=== PATIENT | female | born 1995 | race Caucasian/White ===

== ENCOUNTER 2020-07-26 09:01 | Emergency (ER) | payer SELFPAY ==
[2020-07-26] MEDS ORDERED: AMOXicillin 250 MG CAP ONE (09:36)
== END 2020-07-26 09:38 | disposition home or self-care (01) ==
LOC: BURERS 09:01
DX: K02.9 Dental caries, unspecified (principal); F17.210 Nicotine dependence, cigarettes, uncomplicated
CPT/HCPCS: 99282

== ENCOUNTER 2020-08-16 08:44 | Emergency (ER) | payer OTHER, SELFPAY ==
[2020-08-17 11:55] LABS: SARS-CoV-2 MS2 Positive; SARS-CoV-2 N Gene Negative; SARS-CoV-2 S Gene Negative; SARS-CoV-2 by NAA Not Detected (NotDetected); SARS-CoV-2 orf1ab Negative
== END 2020-08-16 09:25 | disposition home or self-care (01) ==
LOC: BURERS 08:44
DX: J06.9 Acute upper respiratory infection, unspecified (principal); F17.210 Nicotine dependence, cigarettes, uncomplicated
CPT/HCPCS: 87635; 99281; U0003

== ENCOUNTER 2020-11-18 16:04 | Emergency (ER) | payer OTHER, SELFPAY ==
[2020-11-19 02:28] LABS: SARS-CoV-2 MS2 Positive; SARS-CoV-2 N Gene Negative; SARS-CoV-2 S Gene Negative; SARS-CoV-2 by NAA Not Detected (NotDetected); SARS-CoV-2 orf1ab Negative
== END 2020-11-18 16:42 | disposition home or self-care (01) ==
LOC: BURERS 16:04
DX: J02.9 Acute pharyngitis, unspecified (principal); Z20.822 Contact with and (suspected) exposure to COVID-19
CPT/HCPCS: 87635; 99283; U0003

== ENCOUNTER 2021-07-02 12:15 | Emergency (ER) | payer SELFPAY | END 2021-07-02 12:55 | disposition home or self-care (01) | LOC: BURERS 12:15 | DX: K04.7 Periapical abscess without sinus (principal) | CPT/HCPCS: 99282 ==